=== PATIENT | male | born 2000 | race African-American/Black ===

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

== ENCOUNTER 2021-01-15 22:43 | Emergency (ER) | payer SELFPAY ==
[2021-01-16] MEDS ORDERED: CEPH500C PO (00:02)
[2021-01-16] MEDS ORDERED: CEPHALEXIN 250 MG CAPSULE ONE (00:12)
== END 2021-01-15 22:45 | disposition left against medical advice (07) ==
LOC: ER 22:43
DX: S61.411A Laceration without foreign body of right hand, initial encounter (principal); Z53.21 Procedure and treatment not carried out due to patient leaving prior to being seen by health care provider; X58.XXXA Exposure to other specified factors, initial encounter; Y93.89 Activity, other specified; Y92.89 Other specified places as the place of occurrence of the external cause; Y99.8 Other external cause status

== ENCOUNTER 2021-01-15 23:08 | Emergency (ER) | payer BC ==
[~2021-01-15] VITALS: Ht 180.3 cm; Wt 76.9 kg
[2021-01-15] MEDS ORDERED: LIDOCAINE/EPI/TETRACAINE TOPICAL GEL 3 ML. TP ONE ×2 (23:20→23:45)
--- NOTE | 2021-01-15 23:40 | PHYS DOC ---
Past History Past Medical History: No Pertinent History Past Surgical History: No Surgical History Smoking: Non-smoker Alcohol Use: None Drug Use: None Adult General Chief Complaint Chief Complaint: UPPER EXTREMITY INJURY HPI HPI Patient is a 21-year-old male, otherwise healthy, up-to-date on tetanus vaccination who presents with laceration to the hand. States that he was shutting his door and the metal walk on the door caught his skin and cut him. States this happened about an hour before coming to the emergency department. Denies any other injuries. Review of Systems Review of Systems Review of systems otherwise unremarkable except noted in HPI Current Medications Current Medications Current Medications Medications (Trade) Dose Ordered Sig/Jennifer Start Time Stop Time Status Last Admin Dose Admin Lidocaine/ Epinephrine (Let (Zriq-Slqyrgo-Pahkw) Gel) 3 ml STK-MED ONCE 01/15/21 23:20 01/15/21 23:20 DC Allergies Allergies Allergies Coded Allergies Type Severity Reaction Last Updated Verified No Known Drug Allergies 04/25/17 No Physical Exam Physical Exam Constitutional: Well developed, well nourished, no acute distress, non-toxic appearance. [] Skin: Warm, dry, no erythema, no rash. [] Extremities: Patient has a 2 cm linear superficial laceration on the palm of the right hand at the base of the first digit along the web. Bleeding controlled. Neurovascular exam intact. Neurologic: Alert and oriented X 3, no focal deficits noted. [] Psychologic: Affect normal, judgement normal, mood normal. [] Current Patient Data Vital Signs Vital Signs Date Time Temp Pulse Resp B/P (MAP) Pulse Ox O2 Delivery O2 Flow Rate FiO2 01/15/21 23:14 97.8 84 16 124/57 (79) 98 Room Air EKG EKG [] Radiology/Procedures Radiology/Procedures 2 cm linear laceration cleaned with sterile water extensively. L ET placed for local anesthesia. Anesthesia achieved. Three 4-0 Ethilon sutures placed. Patient tolerated procedure well. Cleaned again with sterile water and bandaged. [] Heart Score C/O Chest Pain: No Risk Factors: Risk Factors: DM, Current or recent (<one month) smoker, HTN, HLP, family history of CAD, obesity. Risk Scores: Risk Factors: DM, Current or recent (<one month) smoker, HTN, HLP, family history of CAD, obesity. Course & Med Decision Making Course & Med Decision Making Patient is a 21-year-old male who presents with hand laceration Vital signs not concerning. Physical exam noted above. Wound cleaned, anesthetized and repaired with suture. Patient up-to-date on tetanus. Gave wound care instructions. Advised to follow-up with primary care or return to the emergency department in 5 to 7 days for wound check and suture removal. Gave return precautions to the ED. Patient grateful, verbalized understanding and agreed with plan of discharge. [] Dragon Disclaimer Dragon Disclaimer This electronic medical record was generated, in whole or in part, using a voice recognition dictation system. Departure Departure: Disposition: 02 SHORT TERM HOSPITAL Condition: GOOD Referrals: PCP,ITZEL (PCP) SANGEETHA TALLEY MD Patient Instructions: Laceration Care, Adult Additional Instructions: Thank you for coming to the emergency department tonight and allowing us to take care of you. Your wound was cleaned and sutured. Please keep clean, dry and bandaged as discussed. You are given materials to take home to help accomplish this. Please call your primary care physician first thing in the morning to set up a wound check and suture removal in 5 to 7 days. You were given resources for local primary care physicians and free clinics. If you are unable to get into see your primary care physician please come back to the emergency department for your wound check and suture removal. Scripts Cephalexin (CEPHALEXIN) 500 Mg Capsule 1 CAP PO BID for laceration for 3 Days, #6 CAP Prov: ZHANG ROSENBAUM MD 01/16/21 ZHANG ROSENBAUM MD Jan 15, 2021 23:40
[2021-01-16] MEDS ORDERED: CEPH500C PO (00:02)
[2021-01-16 00:14] VITALS: BP 121/58
[2021-01-16] MEDS ORDERED: CEPHALEXIN 250 MG CAPSULE PO ONE (00:30)
== END 2021-01-16 00:18 | disposition home or self-care (01) ==
LOC: ER 23:08
DX: S61.411A Laceration without foreign body of right hand, initial encounter (principal); W26.8XXA Contact with other sharp object(s), not elsewhere classified, initial encounter; Y93.89 Activity, other specified; Y92.89 Other specified places as the place of occurrence of the external cause; Y99.8 Other external cause status
CPT/HCPCS: 12001; 99283